=== PATIENT | female | born 1975 | race Caucasian/White ===

== ENCOUNTER → 2025-06-04 | Outpatient (CLI) | payer OTHER | END | disposition home or self-care (01) | LOC: MRI 07:25 | PROVIDERS: ATTEND Family Medicine Adult Medicine | DX: S39.012A Strain of muscle, fascia and tendon of lower back, initial encounter (principal); M51.370 Other intervertebral disc degeneration, lumbosacral region with discogenic back pain only; M51.27 Other intervertebral disc displacement, lumbosacral region; M47.817 Spondylosis without myelopathy or radiculopathy, lumbosacral region; M48.07 Spinal stenosis, lumbosacral region; X58.XXXA Exposure to other specified factors, initial encounter; Y93.89 Activity, other specified; Y92.89 Other specified places as the place of occurrence of the external cause; Y99.8 Other external cause status | CPT/HCPCS: 72148 ==

== ENCOUNTER → 2025-06-11 | Outpatient (CLI) | payer BC ==
[2025-06-11 10:02] LABS: ADD RBC MORPHOLOGY YES; BASOPHILS % 1.0 % (0.0-2.0); EOSINOPHILS % 3.6 % (0.0-5.0); HEMATOCRIT. 39.5 % (36.0-48.0); HEMOGLOBIN. 12.4 g/dL (12.0-16.0); LYMPHOCYTES % 44.7 % (20.0-50.0); MEAN PLATELET VOLUME 8.2 fl (7.4-10.4); MONOCYTES % 4.1 % (2.0-8.0); NEUTROPHILS % 46.6 % (40.0-76.0); PLATELET 260 x1000/uL (130-400); RED BLOOD CELL COUNT 6.07 mill/uL (4.2-5.4); RED CELL DISTRIBUTION WIDTH 15.6 % (11.6-14.6)
[2025-06-11 10:29] LABS: CLARITY URINE CLEAR (CLEAR); COLOR URINE YELLOW (YELLOW); GLUCOSE URINE NEGATIVE (NEGATIVE); KETONES URINE NEGATIVE (NEGATIVE); LEUKOCYTE ESTERASE URINE NEGATIVE (NEGATIVE); NITRITE URINE NEGATIVE (NEGATIVE); OCCULT BLOOD URINE NEGATIVE (NEGATIVE); PH URINE 6.5 (4.5-8.0); PROTEIN URINE NEGATIVE (NEGATIVE); SPECIFIC GRAVITY URINE 1.006 (1.005-1.030); UROBILINOGEN URINE 0.2 E.U./dL (0.2-1.0)
[2025-06-11 10:30] LABS: CREATININE 0.6 mg/dL (0.6-1.0)
[2025-06-11 10:31] LABS: PROTEIN TOTAL 7.5 g/dL (6.0-8.3); TRIGLYCERIDE 143 mg/dL (0-150); UREA NITROGEN BLOOD 7 mg/dL (9-23)
[2025-06-11 10:32] LABS: ASPARTATE AMINOTRANSFERASE 17 IU/L (<34); LDL CHOLESTEROL 128 mg/dL (5-100)
[2025-06-11 10:33] LABS: BILIRUBIN TOTAL 0.9 mg/dL (0.1-1.0)
[2025-06-11 10:34] LABS: T4 FREE 1.00 ng/dL (0.89-1.76)
[2025-06-11 12:05] LABS: VITAMIN B12 SERUM 619 pg/mL (211-911)
[2025-06-11 12:06] LABS: FOLIC ACID (FOLATE) SERUM 10.39 ng/mL (>5.38)
[2025-06-11 18:24] LABS: PLATELET ESTIMATE NORMAL
[2025-06-12 10:09] LABS: T4 THYROXINE 8.0 ug/dL (4.5-12.0)
[2025-06-12 13:08] LABS: *ANA DIRECT W REFLEX PANEL Negative (Negative)
== END | disposition home or self-care (01) ==
LOC: LAB 06-10 13:28
PROVIDERS: ATTEND Internal Medicine Geriatric Medicine
DX: Z00.01 Encounter for general adult medical examination with abnormal findings (principal)
CPT/HCPCS: 36415; 80053; 80061; 81003; 82607; 82728; 82746; 83036; 83540; 83550; 84436; 84439; 84443; 84550; 85025; 86038; 86592

== ENCOUNTER → 2025-06-12 | Outpatient (CLI) | payer BC | END | disposition home or self-care (01) | LOC: MAMMO 09:36 | PROVIDERS: ATTEND Internal Medicine Geriatric Medicine | DX: Z12.31 Encounter for screening mammogram for malignant neoplasm of breast (principal); R92.333 Mammographic heterogeneous density, bilateral breasts | CPT/HCPCS: 73565; 77063; 77067 ==